=== PATIENT | male | born 1945 ===

== ENCOUNTER 2017-06-13 09:18 | Emergency (ER) | payer SELFPAY ==
[~2017-06-13] VITALS: Ht 170.2 cm; Wt 67.4 kg
[2017-06-13 09:21] VITALS: Ht 170.2 cm; Wt 67.4 kg
[2017-06-13] MEDS ORDERED: TETRACAINE 0.5% 4 ML OPH LEFT EYE ONE (10:30)
[2017-06-13] MEDS ORDERED: FLUORESCEIN STRIP LEFT EYE ONE (10:30)
[2017-06-13] MEDS ORDERED: IBUP-1542 PO (10:44)
[2017-06-13] MEDS ORDERED: VALA10004 PO (10:44)
[2017-06-13] MEDS ORDERED: ACET1TAB40 PO (10:44)
--- NOTE | 2017-06-13 10:59 | ERD ---
ER Documentation Chief Complaint Chief Complaint left eye swollen, rash to left forehead up to scalp HPI 71-year-old male is complaining of burning pain around his left eye for the last 3-4 days. He has a rash on his left forehead up to the scalp, and the rash on his left eyelid. Denies pain in the eye. Denies vision changes. Denies eye discharge. Denies fever or chills. ROS All systems reviewed and are negative except as per history of present illness. Medications Home Meds Active Scripts Acetaminophen with Codeine (Acetaminophen-Cod #3 Tablet) 1 Each Tablet, 1 TAB PO Q6H Y for SEVERE PAIN LEVEL 7-10, #7 TAB Prov:JUAN DIEGO FREEDMAN NP 06/13/17 Ibuprofen* (Motrin*) 600 Mg Tab, 600 MG PO Q6H Y for PAIN AND OR ELEVATED TEMP, #30 TAB Prov:JUAN DIEGO FREEDMAN NP 06/13/17 Valacyclovir HCl (Valtrex) 1,000 Mg Tablet, 1000 MG PO TID for 7 Days, TAB May substitute to acyclovir 800 mg 5x/d x 7 days. Prov:JUAN DIEGO FREEDMAN NP 06/13/17 Allergies Allergies: Coded Allergies: No Known Allergy (Unverified , 06/13/17) PMhx/Soc History of Surgery: Yes (OPEN HEART SURGERY ) Anesthesia Reaction: No Hx Neurological Disorder: No Hx Respiratory Disorders: No Hx Cardiac Disorders: No Hx Psychiatric Problems: No Hx Miscellaneous Medical Probl: No Hx Alcohol Use: No Hx Substance Use: No Hx Tobacco Use: No Smoking Status: Never smoker Physical Exam Vitals Vital Signs Date Time Temp Pulse Resp B/P Pulse Ox O2 Delivery O2 Flow Rate FiO2 06/13/17 09:21 98.2 79 18 135/69 96 Physical Exam General: Well-developed, well-nourished, conscious and coherent, in no distress Skin: Warm and dry, good texture and turgor. Vesicular lesions noted on the left upper eyelid and left forehead within the V1 dermatome. Head: Normocephalic without evidence of trauma Eyes: Left conjunctiva injected. Pupils equal, round, and reactive to light ; extraocular movements are intact Chest: Normal AP diameter. Good expansion without retractions. Nontender. Lungs are clear to auscultate bilaterally with good tidal volume Heart: Regular rate and rhythm. No murmur, rub, or gallops heard Extremities: Full range of motion. Good strength bilaterally. No clubbing, cyanosis, or edema. Peripheral pulses are intact. Sensation intact Neuro: Alert and oriented 4, GCS 15. Cranial nerves grossly intact. Motor and sensory exams nonfocal. Moves all extremities. Speech clear. Gait normal Results 24 hrs Current Medications Medications (Trade) Dose Ordered Sig/Anish Route PRN Reason Start Time Stop Time Status Last Admin Dose Admin Tetracaine HCl (Tetracaine 0.5% Steri-Unit Cecile) 1 drop ONCE ONCE LEFT EYE 06/13/17 10:30 06/13/17 10:31 DC Fluorescein Sodium (Zjvzp-O-Fdaam) 1 strip ONCE ONCE LEFT EYE 06/13/17 10:30 06/13/17 10:31 DC Procedures/MDM Tetracaine ophthalmic solution was instilled into patient's left eye. Fluoresceins dye was then applied. Patient was examined under Wood's lamp. No dye uptake was noted. No dendritic lesions. Visual acuity: Left 2070, right 20/70, bilateral 20/70 Well-appearing 71-year-old male present ED with history exam findings consistent with herpes zoster surrounding his left eye. There is no ocular involvement. However, I will have them follow-up with analytical research program manager later today for further evaluation. Patient appears well, stable for discharge and outpatient management. Medical decision making shared with patient and family. Education provided to patient and family. Patient and family expressed understanding of the plan. Medications on discharge: Valacyclovir, ibuprofen, Tylenol 3. Follow-up: Primary care provider in 2-3 days or return to ED if worse. Disclaimer: Inadvertent spelling and grammatical errors are likely due to EHR/ dictation software use and do not reflect on the overall quality of patient care. Also, please note that the electronic time recorded on this note does not necessarily reflect the actual time of the patient encounter. Departure Diagnosis: Primary Impression: Shingles Herpes zoster complications: without complications Qualified Code: B02.9 - Herpes zoster without complication Condition: Stable Patient Instructions: Shingles (Herpes Zoster) Referrals: [facility] Hours: Mon - Fri 9:00 AM - 5:00 PM Additional Instructions: Follow up with an analytical research program manager today. JUAN DIEGO FREEDMAN NP Jun 13, 2017 10:59
== END 2017-06-13 10:58 | disposition home or self-care (01) ==
LOC: FTE 09:18
DX: B02.9 Zoster without complications (principal)
CPT/HCPCS: 99284